=== PATIENT | female | born 1945 | race Caucasian/White ===

== ENCOUNTER → 2016-09-23 | Outpatient (CLI) | payer MEDICARE, BC ==
--- NOTE | 2016-09-23 14:58 | KCIC ---
PROCEDURE Two views right knee. HISTORY Knee pain anteriorly for 3 months. Jumping injury. TECHNIQUE Two views of the right knee are submitted for review. COMPARISON None. FINDINGS There is no fracture or dislocation. There is a small joint effusion. There is minimal spurring in the lateral compartment. There is also probably chondrocalcinosis in the lateral compartment. There is very minimal patellofemoral spurring. IMPRESSION 1. Negative for fracture or dislocation. 2. Small joint effusion. 3. Mild osteoarthritis. Chondrocalcinosis. Electronically signed by: Aj Camacho MD (Sep 23, 2016 14:57:00)
== END | disposition home or self-care (01) ==
LOC: KCIC 13:29
PROVIDERS: ATTEND Nurse Practitioner Family
DX: M25.561 Pain in right knee (principal); M25.641 Stiffness of right hand, not elsewhere classified; M17.11 Unilateral primary osteoarthritis, right knee; M11.261 Other chondrocalcinosis, right knee
CPT/HCPCS: 73560

== ENCOUNTER → 2016-09-29 | Outpatient (CLI) | payer MEDICARE, BC ==
--- NOTE | 2016-09-29 15:33 | KCIC ---
PROCEDURE MR of the right knee HISTORY Right knee pain. Lump behind the knee. Pain since May 2016. COMPARISON None TECHNIQUE Standard noncontrast images are obtained. FINDINGS No evidence of a medial meniscal tear. Degenerative tear of the lateral meniscus. Anterior and posterior cruciate ligaments are intact. Medial collateral ligament demonstrates some scarring but no acute tear Iliotibial band unremarkable. Fibular collateral ligament, biceps femoris tendon and popliteus tendon are intact. Extensor mechanism is intact. Large joint effusion. No evidence of osteochondral loose body. Articular cartilage defect at posterior lateral tibial plateau measures about 5 millimeters AP diameter millimeters wide with rounded chronic margins. Moderate to severe chondromalacia at posterior weight-bearing lateral femoral condyle. Moderate chondromalacia of the patella. There is no bone lesion. No acute fracture. Small Peterson cyst. Edema or inflammation within the infrapatellar fat. Generalized soft tissue edema particularly posterior to the distal femur. IMPRESSION 1. Lateral meniscal tear. 2. Primary osteoarthritis, greatest at the posterior aspect of the lateral joint compartment. Electronically signed by: Lewis Rubio MD (Sep 29, 2016 15:32:21)
== END | disposition home or self-care (01) ==
LOC: KCIC MRI 12:56
PROVIDERS: ATTEND Nurse Practitioner Family
DX: S83.281A Other tear of lateral meniscus, current injury, right knee, initial encounter (principal); M17.11 Unilateral primary osteoarthritis, right knee; X58.XXXA Exposure to other specified factors, initial encounter; Y93.89 Activity, other specified; Y92.89 Other specified places as the place of occurrence of the external cause; Y99.8 Other external cause status; M25.461 Effusion, right knee; M71.21 Synovial cyst of popliteal space [Baker], right knee; M22.41 Chondromalacia patellae, right knee
CPT/HCPCS: 73721

== ENCOUNTER → 2017-07-28 | Outpatient (CLI) | payer MEDICARE, BC ==
--- NOTE | 2017-07-28 09:42 | KCIC ---
EXAM: Dual energy x-ray absorptiometry (DEXA). HISTORY: Postmenopausal female presents for osteoporosis screening. COMPARISON: 08/07/2014. TECHNIQUE: Dual energy x-ray absorptiometry of the lumbar spine and left hip was performed. Calculation of bone mineral density based on standard deviations above or below the expected young adult normal value (T-score) was completed. FINDINGS: The average bone mineral density in the 1st through 4th lumbar vertebrae is 0.936 g/cmxcm, corresponding with a T-score of -1.0. There has been a 1.4 percent decrease in density of the lumbar spine compared to the prior study. The average total bone mineral density in the left hip is 0.791 g/cmxcm, corresponding with a T-score of -1.2. There has been a 4.1 percent decrease in density of the left hip compared to the prior study. IMPRESSION: Osteopenia. Note: Definitions established by the World Health Organization: 1. Normal: T-score is -1.0 or above. 2. Osteopenia: T-score is between -1.0 and -2.5 . 3. Osteoporosis: T-score is -2.5 or below. Electronically signed by: Mary Mcfarlane MD (07/28/2017 9:39 AM) [id number]
== END | disposition home or self-care (01) ==
LOC: KCIC DEXA 09:00
PROVIDERS: ATTEND Family Medicine
DX: Z13.820 Encounter for screening for osteoporosis (principal); Z78.0 Asymptomatic menopausal state; M85.80 Other specified disorders of bone density and structure, unspecified site
CPT/HCPCS: 77080

== ENCOUNTER → 2019-07-31 | Outpatient (CLI) | payer MEDICARE, BC ==
--- NOTE | 2019-07-31 09:03 | KCIC ---
Indication: Postmenopausal screening for osteoporosis. Follow-up study. COMPARISON: July 28, 2017. Bone Density: -BMD: (g/cm2) - AP Spine Total (L1-L4).......... 0.938. - Total left Hip................. 0.774. T-Score: - AP Spine Total (L1-L4)......... -1.0. - Total left Hip................. -1.4. Z-Score: - AP Spine Total (L1-L4).......... 1.3. - Total left Hip................. 0.3. World Health Organization criteria for BMD interpretation classify patients as Normal (T-score at or above -1.0), Osteopenic (T-score between -1.0 and -2.5), or Osteoporotic (T-score at or below -2.5). Impression: 1. AP Spine Total L1-L4--- borderline normal. Since the previous study, there has been no significant change. 2. Total left Hip--- osteopenia. Since the previous study, there has been a decrease in the BMD of approximately 2 percent.. Electronically signed by: Shane Mason MD (07/31/2019 9:00 AM) [facility]
== END | disposition home or self-care (01) ==
LOC: KCIC DEXA 07:54
PROVIDERS: ATTEND Family Medicine
DX: M85.88 Other specified disorders of bone density and structure, other site (principal)
CPT/HCPCS: 77080

== ENCOUNTER 2021-06-16 12:41 | Day surgery (SDC) | payer MEDICARE ==
[~2021-06-16] VITALS: Ht 163.8 cm; Wt 55.0 kg
[~2021-06-16 12:41] MED LIST: HYDROmorphone 2 MG/ML VIAL IVP PRN; IV RINGERS,LACTATED 1000ML 1,000 ML IV SCH; MORPHINE SULFATE 2 MG/ML INJ. IVP PRN; PROCHLORPERAZINE 10 MG/2 ML VIAL. IVP PRN; fentaNYL PF VIAL 100 MCG/2 ML VIAL IVP PRN
[2021-06-16] MEDS ORDERED: ONDANSETRON PF 4 MG/2 ML VIAL. ONE (12:43)
[2021-06-16] MEDS ORDERED: LIDOCAINE 2% PF 5 ML VIAL. ONE (12:43)
[2021-06-16] MEDS ORDERED: PROPOFOL 10 MG/ML (20ML) VIAL. IV ONE (12:43)
[2021-06-16] MEDS ORDERED: DEXAMETHASONE SOD PHOS 4 MG/ML VIAL ONE (12:43)
[2021-06-16 13:06] VITALS: BP 130/61
[2021-06-16] MEDS ORDERED: FEMARA2.5 MG PO (13:13)
[2021-06-16] MEDS ORDERED: MULT-496 PO (13:13)
[2021-06-16] MEDS ORDERED: CALC-30 PO (13:14)
[2021-06-16] MEDS ORDERED: OMEG1CAP27 PO (13:14)
[2021-06-16] MEDS ORDERED: LEVO25TA4 PO (13:15)
[2021-06-16] MEDS ORDERED: SCOPOLAMINE 1.5MG PATCH. TD ONE (14:00)
[2021-06-16] MEDS ORDERED: KETOROLAC 30 MG/ML VIAL. ONE (14:05)
[2021-06-16] MEDS ORDERED: LIDOCAINE 1% PF 30 ML VIAL. ONE (14:07)
[2021-06-16] MEDS ORDERED: BUPIVACAINE MPF 0.25% 30 ML VIAL. ONE (14:07)
[2021-06-16] MEDS ORDERED: PROPOFOL 50 ML IV ONE (14:08)
[2021-06-16] MEDS ORDERED: fentaNYL PF VIAL 100 MCG/2 ML VIAL ONE (14:29)
--- NOTE | 2021-06-16 15:48 | PDOC4 ---
OPERATIVE NOTE Date: Date: Jun 16, 2021 Pre-Op Diagnosis: Ganglion cyst right volar wrist Post-Op Diagnosis: Same Procedure Performed: Excision ganglion cyst right volar wrist CPT 48400 Incision [id number] Surgeon: Mireya Costa MD Anesthesia Type: General LMA anesthesia Blood Loss: 5 cc Specimans Obtained: None Findings: See operative note Complications: None Operative Note: This is a pleasant 76-year-old female who presented with a longstanding right wrist volar radial ganglion cyst.As it occasionally causes her discomfort she presents today for removal. The patient was marked in the perioperative holding area. The area of the cyst was identified and confirmed with the patient.A horizontal marking was made to indicate the incision. The risks of bleeding, infection, injury to surrounding nerves, vessels, and tendons, as well as recurrence were discussed with the patient and her . The patient understood the risks and desire to proceed. The patient was brought to the operating room and placed on the OR table in the supine position. SCDs were placed. Antibiotics were given. General LMA anesthesia was induced. The right upper extremity was prepped with ChloraPrep and draped in a sterile fashion. A sterile tourniquet was applied and infla dedra.The area of the cyst was injected with a 50-50 mixture of 0.25% Marcaine and 1% lidocaine with epinephrine. A horizontal incision was made. Tenotomy scissors were used to dissect through the subcutaneous tissues. Sensory nerves were gently retracted. The radial artery was identified and gently retracted.The palmaris longus tendon was identified and retracted. The flexor retinaculum was identified. The previously outlined region was thoroughly explored. A cystic sac was identified and grasped with forceps. This was noted to be adherent to the radial artery. The sac was incised and gently teased from surrounding tissue. The sac was not excised due to its close nature to the radial artery. The stalk was released from its extension toward the joint. The wound was irrigated with saline. The skin was closed with 4-0 nylon suture in an interrupted horizontal mattress fashion. Bacitracin was applied followed by Xeroform gauze, a 4 x 4 gauze, rolled Kerlix, and an Trae bandage. The patient tolerated the procedure well. MIREYA COSTA MD Jun 16, 2021 15:48
[2021-06-16 16:01] VITALS: BP 114/59
== END 2021-06-16 16:48 | disposition home or self-care (01) ==
LOC: SURG 12:41
PROVIDERS: ATTEND Plastic Surgery
DX: M67.431 Ganglion, right wrist (principal); E78.00 Pure hypercholesterolemia, unspecified; M19.90 Unspecified osteoarthritis, unspecified site; Z85.3 Personal history of malignant neoplasm of breast; Z79.899 Other long term (current) drug therapy; Z98.890 Other specified postprocedural states
CPT/HCPCS: 25111; A4930; A6402; J0690; J1100; J1885; J2405; J2704; J3010; J3490; A4657; A6452

== ENCOUNTER → 2021-08-04 | Outpatient (CLI) | payer MEDICARE ==
[~2021-08-04] MED LIST changes: +CALC-30 PO; +FEMARA2.5 MG PO; -HYDROmorphone 2 MG/ML VIAL IVP PRN; -IV RINGERS,LACTATED 1000ML 1,000 ML IV SCH; +LEVO25TA4 PO; -MORPHINE SULFATE 2 MG/ML INJ. IVP PRN; +MULT-496 PO; +OMEG1CAP27 PO; -PROCHLORPERAZINE 10 MG/2 ML VIAL. IVP PRN; -fentaNYL PF VIAL 100 MCG/2 ML VIAL IVP PRN
--- NOTE | 2021-08-05 08:06 | KCIC ---
INDICATION: Screening for osteopenia/osteoporosis. Reason: OSTEOPENIA / Spl. Instructions: / Histor y: . Postmenopausal follow-up. COMPARISON: 07/31/2019 TECHNIQUE: Bone densitometry was performed through the lumbar spine and proximal femur. IMPRESSION: Lumbar Spine: BMD: 0.93 T-Score: -1.0 Range: Osteopenic. Similar prior. Proximal Femur: BMD: 0.71 T-Score: -1.9 Range: Osteopenic. Decreased by 9 percent from prior. World Health Organization Criteria for Bone Density: T-Score: > -1.0: Normal Range < -1.0 to -2.5: Osteopenic Range < -2.5: Osteoporotic Range Electronically signed by: Calderon Ansari MD (08/05/2021 8:04 AM) [id number]
== END ==
LOC: KCIC DEXA 12:33
PROVIDERS: ATTEND Family Medicine
DX: M85.89 Other specified disorders of bone density and structure, multiple sites (principal); Z78.0 Asymptomatic menopausal state
CPT/HCPCS: 77080